=== PATIENT | male | born 1980 | race Hispanic/Latino ===

== ENCOUNTER 2022-03-06 18:11 | Emergency (ER) | payer SELFPAY ==
[2022-03-06] MEDS ORDERED: ONDANSETRON 4 MG/2 ML VIAL ONE (18:53)
[2022-03-06] MEDS ORDERED: NA CHLORIDE 0.9% 1,000 ML ONE (18:53)
[2022-03-06] MEDS ORDERED: MECLIZINE HCL 12.5 MG TAB ONE (18:53)
[2022-03-06 19:06] LABS: Absolute Lymphocytes (CBC) 0.9 K/uL (0.7-4.9); Hematocrit 39.9 % (39.6-49.0); Lymphocytes % 10.2 % (15.3-44.8); MCV 78.7 fL (80-100); MPV 6.3 fL (7.6-11.3); RBC Red Blood Cell Count 5.08 M/uL (4.33-5.43)
[2022-03-06 19:07] LABS: Protime INR 1.1
[2022-03-06 19:23] LABS: ALT/SGPT 30 U/L (12-78); AST/SGOT 15 U/L (15-37); Albumin 3.9 g/dL (3.4-5.0); Alkaline Phosphatase 69 U/L (45-117); BUN Blood Urea Nitrogen 12 mg/dL (7-18); Bicarbonate 26 mmol/L (21-32); Bilirubin Total 0.4 mg/dL (0.2-1.0); Glomerular Filtration Rate 103 ml/min (=/>90); Glucose Level 138 mg/dL (74-106); Protein, Total 8.2 g/dL (6.4-8.2); Sodium Level 139 mmol/L (136-145)
[2022-03-06 19:24] LABS: Bilirubin Direct < 0.1 mg/dL (0-0.2); Troponin High Sensitivity < 3.0 pg/mL (<58.9)
--- NOTE | 2022-03-06 19:35 | RAD REPORT ---
EXAM DESCRIPTION: RAD - Chest Single View - 03/06/2022 7:29 pm CLINICAL HISTORY: dizziness Chest pain. COMPARISON: No comparisons FINDINGS: Portable technique limits examination quality. The lungs are grossly clear. The heart is normal in size. No displaced fractures. IMPRESSION: No acute intrathoracic process suspected.
--- NOTE | 2022-03-06 19:44 | RAD REPORT ---
EXAM DESCRIPTION: CT - Head Brain Wo Cont - 03/06/2022 7:35 pm CLINICAL HISTORY: Dizziness, non-specific Headache, drowsiness, dizziness COMPARISON: No comparisons TECHNIQUE: All CT scans are performed using dose optimization technique as appropriate and may inclu de automated exposure control or mA/KV adjustment according to patient size. FINDINGS: No intracranial hemorrhage, hydrocephalus or extra-axial fluid collection.No areas of brai n edema or evidence of midline shift. The paranasal sinuses and mastoids are clear. The calvarium is intact. IMPRESSION: No acute intracranial abnormality.
--- NOTE | 2022-03-06 20:39 | ER ---
Nurse's Notes [facility] Name: Vaughn Bladwin Age: 41 yrs Sex: Male : 1980 Arrival Date: 03/06/2022 Time: 18:13 Bed 14 Private MD: Diagnosis: Dizziness and giddiness;Nausea with vomiting, unspecified Presentation: 03/06 18:21 Chief complaint: Patient states: dizziness X 5 days, nausea, not eating much, also had iw some chest pains. Coronavirus screen: Client presents with at least one sign or symptom that may indicate coronavirus-19. Ebola Screen: Patient negative for fever greater than or equal to 101.5 degrees Fahrenheit, and additional compatible Ebola Virus Disease symptoms Patient denies exposure to infectious person. Patient denies travel to an Ebola-affected area in the 21 days before illness onset. No symptoms or risks identified at this time. Initial Sepsis Screen: Does the patient meet any 2 criteria? No. Patient's initial sepsis screen is negative. Does the patient have a suspected source of infection? No. Patient's initial sepsis screen is negative. Risk Assessment: Do you want to hurt yourself or someone else? Patient reports no desire to harm self or others. Onset of symptoms was March 01, 2022. 18:21 Method Of Arrival: Wheelchair iw 18:21 Acuity: SHARDA 3 iw Historical: - Allergies: 18:23 No Known Allergies; iw - PMHx: 18:23 Hypertensive disorder; Hypercholesterolemia; iw - PSHx: 18:23 None; iw - Immunization history:: Adult Immunizations up to date, Client reports having NOT received the Covid vaccine. - Social history:: Smoking status: Patient denies any tobacco usage or history of. Patient/guardian denies using alcohol. Screenin:53 Abuse screen: Denies threats or abuse. Denies injuries from another. Nutritional ld1 screening: No deficits noted. Tuberculosis screening: No symptoms or risk factors identified. Fall Risk None identified. Assessment: 18:53 General: Appears in no apparent distress. comfortable, Behavior is calm, cooperative, ld1 appropriate for age. Pain: Denies pain. Neuro: Level of Consciousness is awake, alert, obeys commands, Oriented to person, place, time, situation. Neuro: Reports near syncopal episode. Cardiovascular: Capillary refill < 3 seconds Patient's skin is warm and dry. Rhythm is sinus rhythm. Respiratory: Airway is patent Respiratory effort is even, unlabored. GI: Abdomen is round non-distended. : No signs and/or symptoms were reported regarding the genitourinary system. EENT: No signs and/or symptoms were reported regarding the EENT system. Derm: No signs and/or symptoms reported regarding the dermatologic system. Musculoskeletal: No signs and/or symptoms reported regarding the musculoskeletal system. 19:57 Reassessment: Patient able to ambulate without difficulty but still have some dizziness.ke1 Vital Signs: 18:21 BP 122 / 78; Pulse 77; Resp 16; Temp 96.9; Pulse Ox 98% on R/A; iw 18:53 BP 133 / 79; Pulse 71; Resp 24; Pulse Ox 98% on R/A; Pain 0/10; ld1 20:45 BP 118 / 70; Pulse 79; Resp 19; Pulse Ox 100% ; Pain 0/10; ke1 ED Course: 18:13 Patient arrived in ED. am2 18:23 Triage completed. iw 18:23 Tej Owens PA is PHCP. cp 18:23 Tej Dill MD is Attending Physician. cp 18:23 Arm band placed on. iw 18:34 Faiza Lincoln, SURENDRA is Primary Nurse. ld1 18:53 Patient has correct armband on for positive identification. Placed in gown. Bed in low ld1 position. Call light in reach. Side rails up X2. handbag stitcher on. Pulse ox on. NIBP on. Door closed. Noise minimized. Warm blanket given. 18:53 Inserted saline lock: 20 gauge in right antecubital area, using aseptic technique. kc6 Blood collected. 18:53 Basic Metabolic Panel Sent. kc6 18:53 CBC with Diff Sent. kc6 18:53 LFT's Sent. kc6 18:53 Magnesium Sent. kc6 18:53 PT-INR Sent. kc6 18:53 Troponin HS Sent. kc6 18:53 No provider procedures requiring assistance completed. ld1 19:31 XRAY Chest (1 view) In Process Unspecified. EDMS 19:37 CT Head Brain wo Cont In Process Unspecified. EDMS 20:37 Sky Wellington MD is Referral Physician. cp 20:59 IV discontinued. ke1 Administered Medications: 18:53 Drug: Meclizine 25 mg Route: PO; ld1 19:45 Follow up: Response: Marked relief of symptoms ke1 18:53 Drug: Zofran (Ondansetron) 4 mg Route: IVP; Site: right antecubital; ld1 19:45 Follow up: Response: Marked relief of symptoms ke1 18:53 Drug: NS 0.9% 1000 ml Route: IV; Rate: 1 bolus; Site: right antecubital; ld1 20:59 Follow up: IV Status: Completed infusion ke1 Medication: 18:53 VIS not applicable for this client. ld1 Outcome: 20:38 Discharge ordered by . cp 20:58 Discharged to home ambulatory. ke1 20:58 Condition: good 20:58 Discharge instructions given to patient. 21:00 Patient left the ED. ke1 Signatures: Dispatcher [employer] EDMS Holli Mcgee RN RN Tej Owens PA PA cp Moreno, Amanda am2 Faiza Lincoln RN RN ld1 Concepcion Anderson RN RN ke1 Sheila Paula kc6
--- NOTE | 2022-03-06 20:39 | EDPHYS ---
Physician Documentation [facility] Name: Vaughn Baldwin Age: 41 yrs Sex: Male : 1980 Arrival Date: 03/06/2022 Time: 18:13 Bed 14 Private MD: ED Physician Tej Dill HPI: 03/06 18:44 This 41 yrs old Male presents to ER via Wheelchair with complaints of Near cp Syncope, Dizziness, abnormal ekg, Nausea. 18:44 The patient has experienced near-syncope, almost passed out, felt dizzy. Onset: The cp symptoms/episode began/occurred today. Associated injury: The patient did not suffer any apparent associated injury. Patient reports dizziness times 5 days. Worse today with intermittent temporal pain and vomiting. Denies weakness, denies chest pain. 18:44 Duration: This was a single episode, that is still ongoing, and worsening. cp 18:44 Associated signs and symptoms: Pertinent positives: nausea, vomiting. Current symptoms: cp headache, that is mild, dizziness. Historical: - Allergies: 18:23 No Known Allergies; iw - PMHx: 18:23 Hypertensive disorder; Hypercholesterolemia; iw - PSHx: 18:23 None; iw - Immunization history:: Adult Immunizations up to date, Client reports having NOT received the Covid vaccine. - Social history:: Smoking status: Patient denies any tobacco usage or history of. Patient/guardian denies using alcohol. ROS: 18:45 Constitutional: Negative for body aches, chills, fever, poor PO intake. cp 18:45 Eyes: Negative for injury, pain, redness, and discharge. cp 18:45 ENT: Negative for drainage from ear(s), ear pain, sore throat, difficulty swallowing, difficulty handling secretions. 18:45 Cardiovascular: Negative for chest pain, edema, palpitations. 18:45 Respiratory: Negative for cough, shortness of breath, wheezing. 18:45 Abdomen/GI: Positive for nausea and vomiting, Negative for abdominal pain, diarrhea, constipation. 18:45 Neuro: Positive for dizziness, headache, weakness, Negative for altered mental status, numbness, syncope. 18:45 All other systems are negative. Exam: 18:45 ECG was reviewed by the Attending Physician. cp 18:50 Constitutional: The patient appears in no acute distress, alert, awake, cp non-diaphoretic, non-toxic, well developed, well nourished. 18:50 Head/Face: Normocephalic, atraumatic. cp 18:50 Eyes: Periorbital structures: appear normal, Pupils: equal, round, and reactive to light and accomodation, Extraocular movements: intact throughout, Conjunctiva: normal, no exudate, no injection, Sclera: no appreciated abnormality, Lids and lashes: appear normal, bilaterally, Nystagmus: nystagmus with fast component noted, bilaterally. 18:50 ENT: External ear(s): are unremarkable, Ear canal(s): are normal, clear, TM's: dullness, bilaterally, Nose: is normal, Mouth: Lips: moist, Oral mucosa: moist, Posterior pharynx: Airway: no evidence of obstruction, patent. 18:50 Neck: ROM/movement: is normal, is supple, without pain, no range of motions limitations, no nuchal rigidity. 18:50 Chest/axilla: Inspection: normal. 18:50 Cardiovascular: Rate: normal, Rhythm: regular, Heart sounds: murmur, not appreciated, Edema: is not appreciated, JVD: is not appreciated. 18:50 Respiratory: the patient does not display signs of respiratory distress, Respirations: normal, no use of accessory muscles, no retractions, labored breathing, is not present, Breath sounds: are clear throughout, no decreased breath sounds, no stridor, no wheezing. 18:50 Abdomen/GI: Inspection: abdomen appears normal, Palpation: abdomen is soft and non-tender, in all quadrants. Vital Signs: 18:21 BP 122 / 78; Pulse 77; Resp 16; Temp 96.9; Pulse Ox 98% on R/A; iw 18:53 BP 133 / 79; Pulse 71; Resp 24; Pulse Ox 98% on R/A; Pain 0/10; ld1 20:45 BP 118 / 70; Pulse 79; Resp 19; Pulse Ox 100% ; Pain 0/10; ke1 MDM: 18:30 Patient medically screened. gonzalo 19:00 Differential Diagnosis: cardiac arrhythmia, cerebrovascular accident, drug effect, cp seizure, vertigo. 20:00 Data reviewed: vital signs, nurses notes, lab test result(s), EKG, radiologic studies, cp CT scan. 20:00 Test interpretation: by ED physician or midlevel provider: ECG, plain radiologic cp studies. 20:37 Counseling: I had a detailed discussion with the patient and/or guardian regarding: the cp historical points, exam findings, and any diagnostic results supporting the discharge/admit diagnosis, lab results, radiology results, the need for outpatient follow up, a neurologist, to return to the emergency department if symptoms worsen or persist or if there are any questions or concerns that arise at home. 20:37 Response to treatment: the patient's symptoms have markedly improved after treatment, cp and as a result, I will discharge patient. 03/06 18:40 Order name: Basic Metabolic Panel; Complete Time: 19:47 cp 03/06 18:40 Order name: CBC with Diff; Complete Time: 19:47 cp 03/06 19:47 Interpretation: Normal except: MCV 78.7; MPV 6.3; SANDI% 86.6; LYM% 10.2; MN% 3.1. 03/06 18:40 Order name: LFT's; Complete Time: 19:47 cp 03/06 18:40 Order name: Magnesium; Complete Time: 19:47 cp 03/06 18:40 Order name: PT-INR; Complete Time: 19:47 cp 03/06 18:40 Order name: Troponin HS; Complete Time: 19:47 cp 03/06 18:40 Order name: XRAY Chest (1 view); Complete Time: 19:47 cp 03/06 18:40 Order name: Cardiac monitoring; Complete Time: 18:53 cp 03/06 18:40 Order name: EKG - Nurse/Tech; Complete Time: 18:42 cp 03/06 18:40 Order name: CT Head Brain wo Cont; Complete Time: 19:47 cp 03/06 19:48 Interpretation: Report reviewed. 03/06 18:40 Order name: IV Saline Lock; Complete Time: 18:53 cp 03/06 18:40 Order name: Labs collected and sent; Complete Time: 18:53 cp 03/06 18:40 Order name: O2 Per Protocol; Complete Time: 18:43 cp 03/06 18:40 Order name: O2 Sat Monitoring; Complete Time: 18:43 cp 03/06 19:48 Order name: Misc. Order: ambulate patient; Complete Time: 19:57 cp EC:45 Rate is 70 beats/min. Rhythm is regular. NH interval is normal. QRS interval is normal. cp QT interval is normal. T waves are Inverted in lead aVR. Interpreted by me. Reviewed by me. Administered Medications: 18:53 Drug: Meclizine 25 mg Route: PO; ld1 19:45 Follow up: Response: Marked relief of symptoms ke1 18:53 Drug: Zofran (Ondansetron) 4 mg Route: IVP; Site: right antecubital; ld1 19:45 Follow up: Response: Marked relief of symptoms ke1 18:53 Drug: NS 0.9% 1000 ml Route: IV; Rate: 1 bolus; Site: right antecubital; ld1 20:59 Follow up: IV Status: Completed infusion ke1 Disposition Summary: 03/06/22 20:38 Discharge Ordered Location: Home cp Problem: new cp Symptoms: have improved cp Condition: Stable cp Diagnosis - Dizziness and giddiness cp - Nausea with vomiting, unspecified cp Followup: cp - With: Sky Wellington MD - When: 2 - 3 days - Reason: Recheck today's complaints Discharge Instructions: - Discharge Summary Sheet cp - Dizziness cp - Nausea and Vomiting, Adult cp - Form - Excuse from Work, School, or Physical Activity cp - Rotavirus Infection, Child ke1 Forms: - Medication Reconciliation Form cp - Thank You Letter cp - Antibiotic Education cp - Prescription Opioid Use cp - Work release form ke1 Prescriptions: - Meclizine 25 mg Oral Tablet - take 1 tablet by ORAL route every 8 hours As needed; 30 tablet; Refills: 0, cp Product Selection Permitted - Zofran 4 mg Oral Tablet - take 1 tablet by ORAL route every 12 hours As needed; 20 tablet; Refills: 0, cp Product Selection Permitted Signatures: Dispatcher [employer] Tej Poe MD MD cha Williams, Irene RN Tej Romero PA PA cp Faiza Lincoln RN RN ld1 Concepcion Anderson RN ke1
[2022-03-06 21:48] VITALS: TEMP 96.9
[2022-03-06 21:52] VITALS: BP 118/70; O2SAT 100
--- NOTE | 2022-03-07 07:54 | EKG ---
Test Date: 2022-03-06 Test Time: 18:17:26 [employer]: SAM MEASUREMENT RESULTS: Intervals: Rate: 70 MN: 138 QRSD: 96 QT: 398 QTc: 429 [place]: P: 30 MN: 138 QRS: 76 T: 31 INTERPRETIVE STATEMENTS: Normal sinus rhythm Incomplete right bundle branch block Borderline ECG No previous ECG available for comparison Electronically Signed On 03-07-22 07:52:30 CDT by Iván Jorgensen
== END 2022-03-06 21:00 | disposition home or self-care (01) ==
LOC: ER 18:11
DX: R42 Dizziness and giddiness (principal); R11.2 Nausea with vomiting, unspecified; I10 Essential (primary) hypertension
CPT/HCPCS: 36415; 70450; 71045; 80048; 80076; 83735; 84484; 85025; 85610; 93005; 96361; 96374; 99284; J2405; J7030; J8597